=== PATIENT | female | born 1980 | race Caucasian/White ===

== ENCOUNTER → 2017-05-25 | Outpatient (CLI) | payer OTHER ==
--- NOTE | 2017-05-25 10:22 | RAD ---
MRI of the abdomen to include a MRCP without contrast 05/25/2017 Clinical history: Abdominal pain. Post cholecystectomy 1 year ago Technique: Unenhanced fat saturated T2 weighted axial and coronal, T2 weighted coronal and in and out of phase T1-weighted axial images of the abdomen were obtained. Additional and fat saturated thin section volumetric T2-weighted coronal images of the abdomen were obtained. Multiplanar 3-D MIP reconstructed images of the biliary system were obtained for a MRCP. Findings: No previous imaging studies are available for comparison. The liver, spleen, pancreas, adrenal glands and kidneys are within normal limits. The abdominal aorta tapers normally. No free fluid is seen within the abdomen. MRCP images demonstrate nonvisualization of the gallbladder consistent with a cholecystectomy. The left and right hepatic ducts and their branches, common hepatic duct, common bile duct and main pancreatic duct are well visualized and within normal limits. No filling defect is seen. Impression: Post cholecystectomy. Otherwise negative study.
== END | disposition home or self-care (01) ==
LOC: MRI 07:54
PROVIDERS: ATTEND Internal Medicine Gastroenterology
DX: R10.9 Unspecified abdominal pain (principal); Z90.49 Acquired absence of other specified parts of digestive tract
CPT/HCPCS: 74181

== ENCOUNTER → 2017-06-22 | Day surgery (SDC) | payer OTHER ==
[~2017-06-22] MED LIST: ETON1VAG VG; IV RINGERS,LACTATED 1000ML 1,000 ML IV SCH; LIDOCAINE 1% PF 2 ML VIAL. ID PRN; LIDOCAINE 2% PF Vial for OR 5 ML VIAL. ONE; MIDAZOLAM HCL/PF 2 MG/2 ML VIAL. IV PRN; PROPOFOL 40 ML IV ONE; fentaNYL PF VIAL 100 MCG/2 ML VIAL IV PRN
[2017-06-22 08:32] LABS: NEG OBC UR NEG; POS OBC UR POS
[2017-06-22 10:15] VITALS: BP 132/68
--- NOTE | 2017-06-23 00:33 | HP ---
ADMIT DATE: 06/22/2017 HISTORY OF PRESENT ILLNESS: This is a 36-year-old female whose past medical history is significant for Crohn's ileitis who is seen with worsening abdominal pain in the epigastric and right lower quadrant region. She has been off medications recently due to efficacy issues. Has 1-3 bowel movements per day. Past surgical history is significant for cholecystectomy, MRCP recently was unrevealing for retained stone with continued symptoms. She has requested additional evaluation. PAST MEDICAL HISTORY: Crohn's, gastritis, status post cholecystectomy. ALLERGIES: None. MEDICATIONS: None except for estradiol. FAMILY AND SOCIAL HISTORY: She is a social drinker and nonsmoker. PAST SURGICAL HISTORY: Status post and cholecystectomy. REVIEW OF SYSTEMS: Per records. PHYSICAL EXAMINATION: GENERAL: Reveals a well-nourished, well-developed female. VITAL SIGNS: Temperature is 98, pulse 92, respirations 20. HEENT: Normocephalic and atraumatic head. Pupils and extraocular muscles not tested. Sclerae anicteric. NECK: Supple. LUNGS: Clear. CARDIOVASCULAR: Reveals an S1 and S2 without S3, S4 or appreciable murmur. ABDOMEN: Soft abdomen, normoactive bowel sounds, without appreciable hepatosplenomegaly with right upper quadrant discomfort to deep palpation. EXTREMITIES: Exam reveals no cyanosis, clubbing or edema. IMPRESSION: Abdominal pain, status post cholecystectomy, history of Crohn's ileitis. Differential includes stricture, fistula, partial obstruction and flare of Crohn's. Therefore, I recommend upper endoscopy and colonoscopy with biopsies to further assess. Risks and benefits have been previously discussed including risk of hemorrhage or perforation. She is willing to proceed. SANDY EUBANKS MD DR: ERYN/salvador JOB#: [id number] / [id number] [facility] SANDY EUBANKS MD
--- NOTE | 2017-06-25 13:47 | PATHOLOGY ---
PATHOLOGY REPORT * * * * * * * * FINAL DIAGNOSIS: A. Small bowel, duodenum, biopsy: - No pathologic diagnosis. - Normal villous architecture. B. Small bowel, terminal ileum, biopsy: - No pathologic diagnosis. - Normal villous architecture. C. Colon, random biopsy: - Multiple fragments of colonic mucosa with no significant histopathologic diagnosis. (SKM:sharron; 06/25/2017) REPORT ELECTRONICALLY SIGNED BY: Germania Capone M.D. DATE/TIME: 06/25/2017 13:46 * * * * * * * * GROSS PATHOLOGY: A. Received in formalin labeled "Bindu Paris, duodenal," are multiple (more than 10) segments of ayers soft tissue measuring 2.4 x 0.9 x 0.3 cm in aggregate dimensions and ranging from 0.1 to 0.3 cm in maximum dimension. The specimen is submitted entirely in cassette A1. B. Received in formalin labeled "Bindu Paris, terminal ileum," are 5 segments of ayers soft tissue measuring 0.8 x 1.2 x 0.3 cm in aggregate dimensions and ranging from 0.3 to 0.7 cm in maximum dimension. The specimen is submitted entirely in cassette B1. C. Received in formalin labeled "Bindu Paris random colon," are multiple (more than 10) segments of ayers soft tissue measuring 2.8 x 0.5 x 0.3 cm in aggregate dimensions and ranging from 0.3 to 0.8 cm in maximum dimension. The specimen is submitted entirely in cassette C1. (TSD; 06/22/2017) INITIAL CPT CODE(S): A; 81992 B; 53326 C; 06845 Professional services performed by [facility] at [address] [address] Technical services performed by [facility] at [address] [place] [address], [address], [place] [address]. Latricia Kamara, fax: SPECIMEN(S) RECEIVED: A.Duodenal biopsy B.Terminal ileum biopsy C.Random colon biopsy CLINICAL HISTORY: Abdominal pain; history of Crohn's PATIENT: BINDU PARIS /AGE: 1108/17/1980 (Age: 36) PATIENT #: [id number] ALT CASE #: SPECIMEN COLLECTION DATE: 06/22/2017 SPECIMEN RECEIVED DATE: 06/22/2017 [facility] - [address] [place] [address] - PHONE: [phone] * * * END OF REPORT * * *
== END | disposition home or self-care (01) ==
LOC: ENDOS 08:12
PROVIDERS: ATTEND Internal Medicine Gastroenterology
DX: K64.0 First degree hemorrhoids (principal); K29.50 Unspecified chronic gastritis without bleeding; K31.89 Other diseases of stomach and duodenum; Z90.49 Acquired absence of other specified parts of digestive tract; Z98.51 Tubal ligation status; Z86.39 Personal history of other endocrine, nutritional and metabolic disease; Z91.018 Allergy to other foods
CPT/HCPCS: 43239; 45380; 81025; 88305; J2704; J2001

== ENCOUNTER 2022-01-31 02:09 | Inpatient (IN) | payer OTHER ==
[~2022-01-31] VITALS: Ht 162.6 cm; Wt 62.8 kg
[~2022-01-31 02:09] MED LIST changes: -IV RINGERS,LACTATED 1000ML 1,000 ML IV SCH; -LIDOCAINE 1% PF 2 ML VIAL. ID PRN; -LIDOCAINE 2% PF Vial for OR 5 ML VIAL. ONE; -MIDAZOLAM HCL/PF 2 MG/2 ML VIAL. IV PRN; -PROPOFOL 40 ML IV ONE; -fentaNYL PF VIAL 100 MCG/2 ML VIAL IV PRN
[2022-01-31 02:19] VITALS: BP 134/85
[2022-01-31] MEDS ORDERED: MORPHINE SULFATE 2 MG/ML INJ. IV PRN (02:30)
[2022-01-31] MEDS: MORPHINE SULFATE 2 MG/ML INJ. IV PRN ×4 (02:37→17:11)
[2022-01-31 07:15] VITALS: BP 109/71
[2022-01-31] MEDS ORDERED: IOHEXOL 300 MG/ML 100ML VIAL. PO ONE (08:00)
[2022-01-31] MEDS ORDERED: CONTRAST GIVEN. MC PRN (08:00)
[2022-01-31 08:14] LABS: CALCIUM 8.1 mg/dL (8.5-10.1); CREATININE 0.9 mg/dL (0.6-1.0); GFR 69.3; MAGNESIUM 1.7 mg/dL (1.8-2.4); POTASSIUM 3.6 mmol/L (3.5-5.1)
[2022-01-31] MEDS: IV DEXTROSE 5% - 0.9 % NACL 1,000 ML IV SCH ×2 (10:09→14:13)
[2022-01-31 11:15] VITALS: BP 114/71
--- NOTE | 2022-01-31 12:22 | HP ---
DATE OF SERVICE: 01/31/2022 ADMIT DATE: 01/31/2022 CHIEF COMPLAINT: Abdominal pain and nausea. HISTORY OF PRESENT ILLNESS: The patient is a pleasant, middle-aged female who presented to the ER at [facility] last night with abdominal pain, nausea. They did a CAT scan that showed intussusception. She has now been transferred here for evaluation with General Surgery. PAST MEDICAL HISTORY: Migraines and depression/anxiety. ALLERGIES: NUTS. FAMILY HISTORY: Noncontributory. SOCIAL HISTORY: She does not drink, smoke or take drugs. She has 4 children. She stays at home with them. She is . MEDICATIONS: Reviewed, please refer to the MRAD, she is on propranolol, Heidi and Effexor XR. REVIEW OF SYSTEMS: GENERAL: No history of weight change, weakness or fevers. SKIN: No bruising, hair changes or rashes. EYES: No blurred, double or loss of vision. NOSE AND THROAT: No history of nosebleeds, hoarseness or sore throat. HEART: No history of palpitations, chest pain or shortness of breath on exertion. LUNGS: Denies cough, hemoptysis, wheezing or shortness of breath. GASTROINTESTINAL: She complains of abdominal pain. GENITOURINARY: No history of frequency, urgency, hesitancy or nocturia. NEUROLOGIC: Denies history of numbness, tingling, tremor or weakness. PSYCHIATRIC: No history of panic, anxiety or depression. ENDOCRINE: No history of heat or cold intolerance, polyuria or polydipsia. EXTREMITIES: Denies muscle weakness, joint pain, pain on walking or stiffness. PHYSICAL EXAMINATION: VITALS: Within normal limits and are stable. GENERAL: No apparent distress. Alert and oriented. HEENT: Normal cephalic atraumatic, external auditory canals are patent. EYES: Extraocular muscles are intact, pupils are equally round and reactive to light and accommodation. MUSCULOSKELETAL: Well developed, well nourished, good range of motion. ENDOCRINE: No thyromegaly was palpated. LYMPHATICS: No cervical chain or axillary nodes were noted. HEMATOPOIETIC: No bruising. NECK: Supple, no JVD, no thyromegaly was noted. LUNGS: Clear to auscultation in all lung gannon without rhonchi or wheezing. HEART: RRR, S1, S2 present. Peripheral pulses intact, no obvious murmurs were noted. ABDOMEN: She has decreased bowel sounds and slight tenderness to palpation. EXTREMITIES: Without any cyanosis, clubbing, or edema. Pedal pulses intact, Homans sign is negative. NEUROLOGIC: Normal speech, normal tone. A and O x 3, moves all extremities, no obvious focal deficits. PSYCHIATRIC: Normal affect, normal mood. Stable. SKIN: No ulcerations or rashes, good skin turgor, no jaundice. VASCULAR: Good capillary refill, neurovascular bundle appears to be intact. ASSESSMENT AND PLAN: Intussusception. The patient has been admitted. We have consulted General Surgery. She is going down for another image this morning to see if the intussusception is starting to resolve or will she need to go surgery. For now, continue p.r.n. pain meds, p.r.n. Zofran. NG suctioning. Deep venous thrombosis prophylaxis. IV fluids. Await surgical input. ROME/LETICIA DR: Hipolito TID: [id number]
--- NOTE | 2022-01-31 12:23 | RAD ---
EXAM: Small bowel follow-through exam. HISTORY: Intussusception. TECHNIQUE: A dinkey press operator radiograph of the abdomen was obtained. Serial overhead images were then obtained following the administration of water-soluble contrast through an indwelling nasogastric tube. 3 fluo roscopic spot images were obtained at the conclusion of the exam. The total fluoroscopy time was 0.5 minutes. COMPARISON: CT dated 02/09/2022. FINDINGS: The dinkey press operator image of the abdomen demonstrates a small amount of gas and stool within the colo n. There is a nasogastric tube within the stomach. There is no evidence of bowel obstruction. There a re cholecystectomy clips. The images obtained following the administration of water-soluble contrast through an indwelling naso gastric tube demonstrate contrast opacification of a normal-appearing stomach. There is prominent pro ximal small bowel caliber. No transition point or obstructing lesion is seen. No mucosal lesion is se en. There is no extravasation or fistula. There is contrast within the rectum on a 40 minute overhead images. Fluoroscopic imaging demonstrates normal bowel peristalsis. IMPRESSION: 1. No evidence of bowel obstruction or persistent intussusception. 2. Prominent proximal small bowel caliber, likely physiologic or due to recent resolution of prior ob struction or intussusception. These loops of bowel appear to peristalse normally and no focal mucosal lesion is seen. 3. Rapid small bowel transit time. There is contrast within the rectum at 40 minutes. Electronically signed by: Serene Crystal MD (01/31/2022 9:26 AM) [id number]
--- NOTE | 2022-01-31 12:28 | PDOC2 ---
CONSULT Date of Consult Date of Consult DATE: 01/31/22 TIME: 12:18 Reason for Consult Reason for Consult: possible intussuception Referring Physician Referring Physician: ER Identification/Chief Complaint Chief Complaint abdominal pain Source Source: Chart review, Patient History of Present Illness Reason for Visit: Admitted with abdominal pain and n/v.. Some hx of abdominal pain in the past. Hx of cholecysectomy, hx of crohns, has seen GI in past. There is noted a colonoscopy in 2017, no report attached--pt reports crohns dx was false positive based on colonoscopy Just back from [place], is passing contrast, still with some abdominal pain Past Surgical History Past Surgical History: Cholecystectomy, Family History Family History: Other (noncontributory to current illness ) Social History ALCOHOL: rare Drugs: None Current Medications Current Medications Current Medications Morphine Sulfate (Morphine Sulfate) 2 mg PRN Q2HR PRN IV SEVERE PAIN 7-10 Last administered on 01/31/22at 10:10; Start 01/31/22 at 02:30 Morphine Sulfate (Morphine Sulfate) 1 mg 1X PRN PRN IV BREAKTHROUGH PAIN; Start 01/31/22 at 02:30 Dextrose/Sodium Chloride 1,000 ml @ 100 mls/hr Q10H IV Last administered on 01/31/22at 10:09; Start 01/31/22 at 05:45 Iohexol (Omnipaque 300 Mg/ml) 400 ml 1X ONCE PO Last administered on 01/31/22at 08:15; Start 01/31/22 at 08:00; Stop 01/31/22 at 08:01; Status DC Info (CONTRAST GIVEN -- Rx MONITORING) 1 each PRN DAILY PRN MC SEE COMMENTS; Start 01/31/22 at 08:00; Stop 02/02/22 at 07:59 Ondansetron HCl (Zofran) 4 mg PRN Q6HRS PRN IVP NAUSEA/VOMITING; Start 01/31/22 at 12:30; Status UNV Active Scripts Active Reported Nuvaring Vaginal Ring (Etonogestrel/Ethinyl Estradiol) 1 Each Vag.ring 1 Each VG ONCE EVERY 3 WEEKS Allergies Allergies: Coded Allergies: nut - unspecified (Verified Allergy, Severe, 01/31/22) ROS General: YES: Fatigue, Appetite (loss) PSYCHOLOGICAL ROS: No: Anxiety, Depression Eyes: No Blurry vision, No Double vision HEENT: YES: Sore Throat; No: Heacaches Hematological and Lymphatic: No: Bleeding Problems, Blood Clots Respiratory: No: Cough, Shortness of breath Cardiovascular: No Chest Pain, No Palpitations Gastrointestinal: Yes Other (see hpi) Genitourinary: No Hematuria Musculoskeletal: No Joint Pain, No Muscle Pain Neurological: No Impaired Coord/balance, No Numbness/Tingling Skin: No Pruritus, No Rash Physical Exam General: Alert, Oriented X3, Cooperative, No acute distress HEENT: Atraumatic, Other (ng in place) Lungs: Clear to auscultation, Normal air movement Heart: Regular rate, Normal S1, Normal S2 Abdomen: Soft, Other (nondistended, mildly ttp on exam, no peritoneal signs ) Extremities: No clubbing, No cyanosis Skin: No rashes, No breakdown Neuro: Normal gait Psych/Mental Status: Mental status NL, Mood NL MUSCULOSKELETAL: No deformity, No swelling Vitals VITALS Vital Signs Date Time Temp Pulse Resp B/P (MAP) Pulse Ox O2 Delivery O2 Flow Rate FiO2 01/31/22 11:15 98.4 68 18 114/71 (85) 96 Room Air 98.4 Labs Labs Laboratory Tests Test 01/31/22 07:15 01/31/22 10:59 Sodium Level 141 mmol/L (136-145) Potassium Level 3.6 mmol/L (3.5-5.1) Chloride Level 108 mmol/L (98-107) Carbon Dioxide Level 27 mmol/L (21-32) Anion Gap 6 (6-14) Blood Urea Nitrogen 10 mg/dL (7-20) Creatinine 0.9 mg/dL (0.6-1.0) Estimated GFR (Cockcroft-Gault) 69.3 Glucose Level 137 mg/dL (70-99) Calcium Level 8.1 mg/dL (8.5-10.1) Magnesium Level 1.7 mg/dL (1.8-2.4) Lactate Dehydrogenase 116 U/L (81-234) Glucose (Fingerstick) 143 mg/dL (70-99) Laboratory Tests Test 01/31/22 07:15 01/31/22 10:59 Sodium Level 141 mmol/L (136-145) Potassium Level 3.6 mmol/L (3.5-5.1) Chloride Level 108 mmol/L (98-107) Carbon Dioxide Level 27 mmol/L (21-32) Anion Gap 6 (6-14) Blood Urea Nitrogen 10 mg/dL (7-20) Creatinine 0.9 mg/dL (0.6-1.0) Estimated GFR (Cockcroft-Gault) 69.3 Glucose Level 137 mg/dL (70-99) Calcium Level 8.1 mg/dL (8.5-10.1) Magnesium Level 1.7 mg/dL (1.8-2.4) Lactate Dehydrogenase 116 U/L (81-234) Glucose (Fingerstick) 143 mg/dL (70-99) Assessment/Plan Assessment/Plan SBO, possible intussusception sbft no active findings of obstruction, intussesception, will review with Dr Perez GI consult DMITRY PESTEIN APRN January 31, 2022 12:27
[2022-01-31] MEDS ORDERED: ONDANSETRON PF 4 MG/2 ML VIAL. IVP PRN (12:30)
[2022-01-31] MEDS ORDERED: PROP20TA PO (13:52)
[2022-01-31] MEDS ORDERED: VENL37.5 PO (13:52)
[2022-01-31] MEDS ORDERED: ETHI1TAB12 PO (13:52)
[2022-01-31 14:56] VITALS: BP 106/63
[2022-01-31] MEDS: VENLAFAXINE XR 37.5 MG CAP.ER.24H. PO SCH (15:43)
--- NOTE | 2022-01-31 15:48 | PDOC2 ---
GI CONSULT Date of Service: DATE: 01/31/22 TIME: 15:35 Reason For Consult: abdominal pain HPI: HPI: 41 y/o female w/ acute onset of RUQ pain w/ n/v at midnight yesterday. No precipitating events. Similar to abdominal migraines but pain usually in midline and to left for those (and this pain is to right). Imaging at [facility] as below, transferred here for surgery eval. Had SBS (below). NGT in place w/ ~400cc green bilious fluid in canister. She feels better - still w/ RUQ soreness. Has stooled (passed contrast from SBS). Denies reflux, dysphagia, hematemesis, diarrhea, constipation, hematochezia, melena, change in appetite, and weight loss. Last EGD and colonoscopy in 2020 @ [facility] - reportedly normal. Colonoscopy 2017 - path report w/ unremarkable biopsies. Carries diagnosis of Crohn's - colonoscopy performed in [place] in 2013 or 2014 for abd pain - reports abnormal TI biopsies. Was treated, can't remember with what - off treatment since 2015 and has been told possible misdiagnosis. S/p cholecystectomy for biliary dyskinesia. No liver, pancreas, or PUD history. No NSAIDs. Follow at w/ GI (Dr. English) and neurology (for abd migraines). PMH: PMH: cholecystectomy, , tubal ligation, exp lap for endometriosis FH: Family History: No pertinent hx Social History: ALCOHOL: rare Drugs: None ROS: GEN: Denies fevers, chills, sweats HEENT: Denies blurred vision, sore throat CV: Denies chest pain RESP: Denies shortness of air, cough GI: Per HPI : Denies hematuria, dysuria ENDO: Denies weight changes NEURO: Denies confusion, dizziness MSK: Denies weakness, joint pain/swelling SKIN: Denies jaundice, pruritus Vitals: Vitals: Vital Signs Date Time Temp Pulse Resp B/P (MAP) Pulse Ox O2 Delivery O2 Flow Rate FiO2 01/31/22 15:20 16 99 01/31/22 14:56 98.6 75 106/63 (77) Room Air 98.6 Labs: Labs: Laboratory Tests Test 01/31/22 07:15 01/31/22 10:59 Sodium Level 141 mmol/L (136-145) Potassium Level 3.6 mmol/L (3.5-5.1) Chloride Level 108 mmol/L (98-107) Carbon Dioxide Level 27 mmol/L (21-32) Anion Gap 6 (6-14) Blood Urea Nitrogen 10 mg/dL (7-20) Creatinine 0.9 mg/dL (0.6-1.0) Estimated GFR (Cockcroft-Gault) 69.3 Glucose Level 137 mg/dL (70-99) Calcium Level 8.1 mg/dL (8.5-10.1) Magnesium Level 1.7 mg/dL (1.8-2.4) Lactate Dehydrogenase 116 U/L (81-234) Glucose (Fingerstick) 143 mg/dL (70-99) Allergies: Coded Allergies: nut - unspecified (Verified Allergy, Severe, 01/31/22) Medications: Current Medications Medications (Trade) Dose Ordered Sig/Jean Paul Route PRN Reason Start Time Stop Time Status Last Admin Dose Admin Morphine Sulfate (Morphine Sulfate) 2 mg PRN Q2HR PRN IV SEVERE PAIN 7-10 01/31/22 02:30 01/31/22 14:13 Dextrose/Sodium Chloride 1,000 ml @ 100 mls/hr Q10H IV 01/31/22 05:45 01/31/22 14:13 Iohexol (Omnipaque 300 Mg/ml) 400 ml 1X ONCE PO 01/31/22 08:00 01/31/22 08:01 DC 01/31/22 08:15 Imaging: Imaging: CT A/P @ [facility] Enteroenteric intussusception in RUQ w/ associated dilated SB loops, non- obstructive bilateral nephrolithiasis. SBS IMPRESSION: 1. No evidence of bowel obstruction or persistent intussusception. 2. Prominent proximal small bowel caliber, likely physiologic or due to recent resolution of prior obstruction or intussusception. These loops of bowel appear to peristalse normally and no focal mucosal lesion is seen. 3. Rapid small bowel transit time. There is contrast within the rectum at 40 minutes. PE: GEN: NAD HEENT: Atraumatic, PERRL LUNGS: CTAB HEART: RRR ABD: NABS, S/ND, NGT bilious, RUQ soreness to light touch EXTREMITY: No edema SKIN: No rashes, no jaundice NEURO/PSYCH: A & O 3 A/P: A/P: RUQ pain, n/v - improving Abnormal CT w/ concern for intussusception/obstruction - not demonstrated on SBS CRC screen - reportedly normal last year @ [facility] h/o Crohn's S/p cholecystectomy H/o abdominal migraines - followed by neurology -- D/w Dr. Soto - okay w/ GI to remove NGT and ADAT. Empiric acid-account retention representative - IV for now. Update/outside records reviewed: From in 2018 - -unexplained abdominal pain for a long time (>15 years), associated w/ shaking, less severe when , worse when menstruating -diagnosed w/ Crohn's in [place] in 2011 -Pentasa, azathioprine, prednisone, Bentyl, Levsin - all unhelpful -NSAIDs and hydrcodone possibly helpful -EGD and colonoscopy w/ Dr. Soto in 2017: normal esopahgus, gastritis, nodular mucosa in duodenum, normal TI, internal hemorrhoids. -MRCP 2017 (actually available in [employer]): unremarkable post-cholecystectomy -SBS 2017 mild distal ileal abnormality (8-10cm SB thickening proximal to ICV w/o obstruction, slight mucosal irregularity, no fistula or abscess) -C1 esterase inhibitor funcion normal in 2018 -MR enterography 12/2017 normal -[facility] antibody and genetic test panel suggestive of IBD -celiac testing reportedly normal -food allergies: cantaloupe, carrot, barley, peanut, almond, cashew, coconut, peach, pistachio... also other food intolerances -trigger point injections moderately helpful MAJOR-SAMAN LONGO January 31, 2022 15:48
[2022-01-31] MEDS: PROPRANOLOL 10 MG TABLET. PO SCH ×2 (15:51→21:00)
--- NOTE | 2022-01-31 15:51 | NUR ---
Nasogastric tube removed from low suction and discontinued er physician order
[2022-01-31] MEDS: PANTOPRAZOLE IV PUSH 40 MG VIAL. IVP SCH (17:10)
[2022-01-31 19:30] VITALS: BP 105/66
[2022-01-31 23:15] VITALS: BP 106/64
[2022-02-01] MEDS: IV DEXTROSE 5% - 0.9 % NACL 1,000 ML IV SCH ×2 (01:45→11:45)
[2022-02-01 03:02] VITALS: BP 112/65
[2022-02-01 07:00] VITALS: BP 103/55
[2022-02-01] MEDS ORDERED: DROSPIRENONE PO SCH (09:00)
[2022-02-01] MEDS: VENLAFAXINE XR 37.5 MG CAP.ER.24H. PO SCH (09:00)
[2022-02-01] MEDS: PROPRANOLOL 10 MG TABLET. PO SCH (09:00)
[2022-02-01] MEDS ORDERED: ETHINYL ESTRADIOL PO SCH (09:00)
[2022-02-01] MEDS: PANTOPRAZOLE IV PUSH 40 MG VIAL. IVP SCH (09:09)
--- NOTE | 2022-02-01 09:19 | PDOC ---
Date of Service: DATE: 02/01/22 TIME: 09:15 Subjective: Subjective: Feels tired, but otherwise better. Tolerating clears and stooling. Less RUQ pain. Not very hungry but wants to go home. Thinks treatment for abdominal migraines has been the most helpful for her chronic pain. Objective: Vital Signs: Vital Signs Date Time Temp Pulse Resp B/P (MAP) Pulse Ox O2 Delivery O2 Flow Rate FiO2 02/01/22 07:00 98.2 79 20 103/55 (71) 97 Room Air 98.2 Labs: Laboratory Tests Test 01/31/22 10:59 01/31/22 16:57 01/31/22 21:29 02/01/22 07:41 Glucose (Fingerstick) 143 mg/dL 142 mg/dL 130 mg/dL 137 mg/dL PE: GEN: NAD LUNGS: CTAB HEART: RRR ABD: S/ND, less tender NEURO/PSYCH: A & O 3 A/P: RUQ pain, n/v - resolving - initial imaging concerning for intussusception/obstruction but not demonstrated on follow-up imaging -- Extensive past GI workup per consult note. Okay to ADAT and DC soon GI-hoffmann. Consider staying on acid-collections analyst as a trial. Justicifation of Admission Dx: Justifications for Admission: Justification of Admission Dx: Yes SAMAN WOODWARD February 01, 2022 09:19
[2022-02-01 10:21] LABS: HEMATOCRIT 33.6 % (36.0-47.0); HEMOGLOBIN 11.4 g/dL (12.0-15.5)
[2022-02-01] MEDS ORDERED: PANT40TA77 PO (10:36)
--- NOTE | 2022-02-01 10:37 | PDOC ---
[employer] PROGRESS NOTE Date of Service DOS: DATE: 02/01/22 TIME: 10:37 Chief Complaint Chief Complaint Resolving intussusception History of Present Illness History of Present Illness 02/02/2020 Patient seen and examined Her symptoms have resolved I reviewed the [facility] results Her intussusception seems to have resolved We will go ahead and advance her diet and hope to discharge this afternoon Vitals/I&O Vitals/I&O: Vital Signs Date Time Temp Pulse Resp B/P (MAP) Pulse Ox O2 Delivery O2 Flow Rate FiO2 02/01/22 09:00 71 103/55 02/01/22 07:00 98.2 20 97 Room Air 98.2 Physical Exam General: Alert, Oriented X3, Cooperative, No acute distress Heart: Regular rate, Normal S1, Normal S2 Abdomen: Soft, Other (nondistended, mildly ttp on exam, no peritoneal signs ) Extremities: No clubbing, No cyanosis Skin: No rashes, No breakdown Labs Labs: Laboratory Tests Test 01/31/22 10:59 01/31/22 16:57 01/31/22 21:29 02/01/22 07:41 Glucose (Fingerstick) 143 mg/dL (70-99) 142 mg/dL (70-99) 130 mg/dL (70-99) 137 mg/dL (70-99) Test 02/01/22 10:00 Hemoglobin 11.4 g/dL (12.0-15.5) Hematocrit 33.6 % (36.0-47.0) Mean Corpuscular Hemoglobin Concent 34 g/dL (31-37) Assessment and Plan Assessmemt and Plan Discharge if tolerates diet Comment Review of Relevant I have reviewed the following items rhett (where applicable) has been applied. Medications: Current Medications Medications (Trade) Dose Ordered Sig/Jean Paul Route PRN Reason Start Time Stop Time Status Last Admin Dose Admin Venlafaxine HCl (Effexor Xr) 37.5 mg DAILY PO 01/31/22 15:00 02/01/22 09:00 Propranolol HCl (Inderal) 30 mg BID PO 01/31/22 15:00 02/01/22 09:00 Pantoprazole Sodium (PROTONIX VIAL for IV PUSH) 40 mg DAILYAC IVP 01/31/22 16:30 02/01/22 09:21 DC 02/01/22 09:09 Justifications for Admission Other Justification CASTLE,NIAL K III DO February 01, 2022 10:37
[2022-02-01] MEDS ORDERED: ACETAMINOPHEN 500 MG TABLET PO PRN (10:45)
[2022-02-01 11:00] VITALS: BP 92/54
--- NOTE | 2022-02-01 12:34 | PDOC ---
PROGRESS NOTES Date of Service DATE: 02/01/22 TIME: 12:33 Subjective Subjective Feeling better, less pain, taking po well Objective Objective Vital Signs Date Time Temp Pulse Resp B/P (MAP) Pulse Ox O2 Delivery O2 Flow Rate FiO2 02/01/22 11:00 97.6 70 20 92/54 (67) 96 Room Air 97.6 Intake and Output 02/01/22 07:00 # Voids 2 Physical Exam Abdomen: Soft (mildly tender RUQ, improved from before) Heart: Regular rate Extremities: No clubbing, No cyanosis General: Alert, Oriented X3 HEENT: Atraumatic Neuro: Normal speech Psych/Mental Status: Mental status NL Assessment Assessment RUQ pain Plan Plan of Care Improving, SBS without abnormality, taking PO; ok to discharge Comment Review of Relevant I have reviewed the following items rhett (where applicable) has been applied. Labs Laboratory Tests Test 01/31/22 07:15 01/31/22 10:59 01/31/22 16:57 01/31/22 21:29 Sodium Level 141 mmol/L (136-145) Potassium Level 3.6 mmol/L (3.5-5.1) Chloride Level 108 mmol/L (98-107) Carbon Dioxide Level 27 mmol/L (21-32) Anion Gap 6 (6-14) Blood Urea Nitrogen 10 mg/dL (7-20) Creatinine 0.9 mg/dL (0.6-1.0) Estimated GFR (Cockcroft-Gault) 69.3 Glucose Level 137 mg/dL (70-99) Calcium Level 8.1 mg/dL (8.5-10.1) Magnesium Level 1.7 mg/dL (1.8-2.4) Lactate Dehydrogenase 116 U/L (81-234) Glucose (Fingerstick) 143 mg/dL (70-99) 142 mg/dL (70-99) 130 mg/dL (70-99) Test 02/01/22 07:41 02/01/22 10:00 02/01/22 11:07 Glucose (Fingerstick) 137 mg/dL (70-99) 98 mg/dL (70-99) Hemoglobin 11.4 g/dL (12.0-15.5) Hematocrit 33.6 % (36.0-47.0) Mean Corpuscular Hemoglobin Concent 34 g/dL (31-37) Laboratory Tests Test 01/31/22 16:57 01/31/22 21:29 02/01/22 07:41 02/01/22 10:00 Glucose (Fingerstick) 142 mg/dL (70-99) 130 mg/dL (70-99) 137 mg/dL (70-99) Hemoglobin 11.4 g/dL (12.0-15.5) Hematocrit 33.6 % (36.0-47.0) Mean Corpuscular Hemoglobin Concent 34 g/dL (31-37) Test 02/01/22 11:07 Glucose (Fingerstick) 98 mg/dL (70-99) Medications Current Medications Morphine Sulfate (Morphine Sulfate) 2 mg PRN Q2HR PRN IV SEVERE PAIN 7-10 Last administered on 01/31/22at 17:11; Start 01/31/22 at 02:30 Morphine Sulfate (Morphine Sulfate) 1 mg 1X PRN PRN IV BREAKTHROUGH PAIN; Start 01/31/22 at 02:30 Dextrose/Sodium Chloride 1,000 ml @ 100 mls/hr Q10H IV Last administered on 02/01/22at 01:45; Start 01/31/22 at 05:45 Iohexol (Omnipaque 300 Mg/ml) 400 ml 1X ONCE PO Last administered on 01/31/22at 08:15; Start 01/31/22 at 08:00; Stop 01/31/22 at 08:01; Status DC Info (CONTRAST GIVEN -- Rx MONITORING) 1 each PRN DAILY PRN MC SEE COMMENTS; Start 01/31/22 at 08:00; Stop 02/02/22 at 07:59 Ondansetron HCl (Zofran) 4 mg PRN Q6HRS PRN IVP NAUSEA/VOMITING; Start 01/31/22 at 12:30 Venlafaxine HCl (Effexor Xr) 37.5 mg DAILY PO Last administered on 02/01/22at 09:00; Start 01/31/22 at 15:00 Non-Formulary Medication (Ethinyl Estradiol/ Drospirenone (Heidi 28 Tablet)) 1 tab DAILY PO ; Start 02/01/22 at 09:00; Status UNV Propranolol HCl (Inderal) 30 mg BID PO Last administered on 02/01/22at 09:00; Start 01/31/22 at 15:00 Pantoprazole Sodium (PROTONIX VIAL for IV PUSH) 40 mg DAILYAC IVP Last administered on 02/01/22at 09:09; Start 01/31/22 at 16:30; Stop 02/01/22 at 09:21; Status DC Pantoprazole Sodium (Protonix) 40 mg DAILYAC PO ; Start 02/02/22 at 07:30 Acetaminophen (Tylenol) 1,000 mg PRN Q6HRS PRN PO pain Last administered on 02/01/22at 11:01; Start 02/01/22 at 10:45 Active Scripts Active Pantoprazole Sodium (Pantoprazole Sodium) 40 Mg Tablet.dr 40 Mg PO DAILYAC 30 Days Reported Heidi 28 Tablet (Ethinyl Estradiol/Drospirenone) 1 Each Tablet 1 Tab PO DAILY 30 Days Effexor Xr (Venlafaxine Hcl) 37.5 Mg Cap.er.24h 37.5 Mg PO DAILY Propranolol Hcl 20 Mg Tablet 30 Mg PO BID Vitals/I & O Vital Sign - Last 24 Hours 01/31/22 01/31/22 01/31/22 01/31/22 14:13 14:56 15:20 15:51 Temp 98.6 98.6 Pulse 75 75 Resp 16 20 16 B/P (MAP) 106/63 (77) 106/63 Pulse Ox 96 99 99 O2 Delivery Room Air 01/31/22 01/31/22 01/31/22 01/31/22 17:11 17:49 19:30 21:00 Temp 98.3 98.3 Pulse 75 75 Resp 16 16 18 B/P (MAP) 105/66 (79) 105/66 Pulse Ox 95 O2 Delivery Room Air Room Air Room Air 01/31/22 02/01/22 02/01/22 02/01/22 23:15 03:02 07:00 09:00 Temp 98.3 98.3 98.2 98.3 98.3 98.2 Pulse 81 83 79 71 Resp 20 20 B/P (MAP) 106/64 (78) 112/65 (81) 103/55 (71) 103/55 Pulse Ox 96 97 97 O2 Delivery Room Air Room Air Room Air 02/01/22 11:00 Temp 97.6 97.6 Pulse 70 Resp 20 B/P (MAP) 92/54 (67) Pulse Ox 96 O2 Delivery Room Air Justifications for Admission Other Justification SANDY HASTINGS MD February 01, 2022 12:34
--- NOTE | 2022-02-01 14:30 | NUR ---
Patient discharged via wheelchair to private vehicle.
[2022-02-02] MEDS ORDERED: PANTOPRAZOLE 40 MG TABLET.DR. PO SCH (07:30)
--- NOTE | 2022-02-02 10:48 | DS ---
DATE OF DISCHARGE: 02/01/2022 ADMISSION DIAGNOSIS: Intussusception. DISCHARGE DIAGNOSIS: Resolving intussusception. CONSULTATIONS: GI and General Surgery. PROCEDURES: None. HOSPITAL COURSE: The patient is a pleasant 41-year-old healthy female who presented to [facility] ER with intussusception. She was transferred here for consultation with GI and General surgery. We did the NG suctioning for a day or two. We did repeat imaging. Her NG was then taken out. Yesterday, she was seen and examined, was doing well and wanted to try clear liquids. I advanced her diet and we discharged to home. DISPOSITION: Home. ACTIVITY: As tolerated. DIET: Low sodium. DISCHARGE MEDICATIONS: Please see the MRAD. Protonix 40 a day, Heidi control, propranolol 30 b.i.d., and Effexor XR 37.5 daily. Total time [address]: Hipolito TID: [id number]
== END 2022-02-01 14:30 | disposition home or self-care (01) | DRG 389 ==
LOC: 4 NORTH 02:09
PROVIDERS: ADMIT Internal Medicine; ATTEND Internal Medicine
PROC: 0D9670Z Drainage of Stomach with Drainage Device, Via Natural or Artificial Opening (ICD-10-PCS; principal; 2022-01-31)
DX: K56.1 Intussusception (principal); K50.90 Crohn's disease, unspecified, without complications; G43.D0 Abdominal migraine, not intractable; G89.29 Other chronic pain; N80.9 Endometriosis, unspecified; Z90.49 Acquired absence of other specified parts of digestive tract; F32.A Depression, unspecified; F41.9 Anxiety disorder, unspecified; G43.909 Migraine, unspecified, not intractable, without status migrainosus; K82.8 Other specified diseases of gallbladder; Z91.018 Allergy to other foods
CPT/HCPCS: 36415; 74250; 80048; 82962; 83615; 83735; 85014; 85018; C9113; J2270; J7042; Q9967; G0378